=== PATIENT | male | born 1970 | race Caucasian/White ===

== ENCOUNTER 2020-04-22 00:34 | Emergency (ER) | payer MEDICARE ==
[~2020-04-22] VITALS: Ht 185.4 cm; Wt 113.4 kg
[2020-04-22] MEDS ORDERED: cefTRIAXone 1 GM in NS 55 ML IVPB ONE (00:45)
--- NOTE | 2020-04-22 00:49 | Emergency Room Report ---
History of Present Illness General Chief Complaint: Edema Source: Patient, EMS Present Illness HPI This a 50-year-old male with a history of bipolar. 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 He has no shirt on and only a shirt. He is not wearing any shoes. He presents with chief complaint of lower extremity edema and redness. He said is been ongoing for 10 days. He said he went to urgent care and nothing was done. He said that there was methamphetamine in the street and he may have "stepped on it. He complained of pain of 8 out of 10. Worse with walking. Better with rest. He has blistering to his right foot. He had previous blistering to the left foot but now scarred up. Denies any trauma. No fever or chills but no nausea no vomiting. Allergies: Coded Allergies: No Known Allergies (Unverified , 04/22/20) COVID-19 Screening Contact w/high risk pt: No Experienced COVID-19 symptoms?: No COVID-19 Testing performed PAN GREASER: No Patient History Past Medical History: see triage record, old chart reviewed Past Surgical History: other Pertinent Family History: none Social History: Denies: smoking Immunizations: other Reviewed Nursing Documentation: PMH: Agreed; PSxH: Agreed Nursing Documentation-PMH Hx Hypertension: Yes History Of Psychiatric Problem: Yes Review of Systems Eye: Denies: eye pain, blurred vision ENT: Denies: ear pain, nose congestion, throat swelling Respiratory: Denies: cough, shortness of breath Cardiovascular: Denies: chest pain, palpitations Gastrointestinal: Denies: abdominal pain, diarrhea, nausea, vomiting Musculoskeletal: Reports: joint swelling, muscle pain; Denies: back pain, joint pain Skin: Denies: rash Neurological: Denies: headache, numbness Endocrine: Denies: increased thirst, increased urine Hematologic/Lymphatic: Denies: easy bruising All Other Systems: negative except mentioned in HPI Physical Exam Vital Signs Date Time Temp Pulse Resp B/P (MAP) Pulse Ox O2 Delivery O2 Flow Rate FiO2 04/22/20 00:32 98.2 85 17 130/81 (97) 97 Room Air Vitals unremarkable Sp02 EP Interpretation: reviewed, normal General Appearance: well appearing, no apparent distress, alert Head: normocephalic, atraumatic Eyes: bilateral eye PERRL, bilateral eye EOMI ENT: hearing grossly normal, normal pharynx Neck: full range of motion, supple, no meningismus Respiratory: chest non-tender, lungs clear, normal breath sounds Cardiovascular #1: regular rate, rhythm, no murmur Gastrointestinal: normal bowel sounds, non tender, no mass, no organomegaly, no bruit, non-distended Musculoskeletal: back normal, normal range of motion, other - Right foot: There is a large blistered on the medial aspect of the ankle and calcaneus. He has eschared/scabbed blister to the left heel. There is lower extremity is very erythematous up to his thigh where his shorts end Neurologic: alert Psychiatric: mood/affect normal Skin: other - His torso was also erythematous. Medical Decision Making Diagnostic Impression: Primary Impression: Cellulitis of both lower extremities Additional Impression: Sunburn of second degree ER Course Patient presents with redness to his lower extremity and edema. I suspect that he is badly sunburn because area that is covered has normal skin color. He has been walking on the street barefoot and therefore developing blister. It may be infected. He does have edema but bilaterally. He is increased risk for cellulitis and abscess. I did send a culture. Antibiotics given here. Last Vital Signs Date Time Temp Pulse Resp B/P (MAP) Pulse Ox O2 Delivery O2 Flow Rate FiO2 04/22/20 00:32 98.2 85 17 130/81 (97) 97 Room Air Status: improved Disposition: HOME, SELF-CARE Condition: Stable Scripts Clindamycin Hcl (CLINDAMYCIN HCL) 300 Mg Capsule 300 MG ORAL THREE TIMES A DAY, #21 CAP Prov: Narinder Sanon MD 04/22/20 Additional Instructions: Elevate foot. Follow-up with your doctor in 7 days for recheck. Return if worse. Narinder Sanon MD Apr 22, 2020 00:49
[2020-04-22 01:11] VITALS: BP 136/78
[2020-04-22 01:11] LABS: BASOPHILS % (AUTO) 2.1 % (0.0-2.0); EOSINOPHILS % (AUTO) 1.6 % (0.0-3.0); HEMATOCRIT 40.1 % (42.0-52.0); HEMOGLOBIN 13.6 G/DL (14.2-18.0); MEAN CORPUSCULAR VOLUME 92 FL (80-99); MONOCYTES % (AUTO) 9.8 % (1.0-10.0); NEUTROPHILS % (AUTO) 64.4 % (45.0-75.0); PLATELET COUNT 326 K/UL (150-450); RED BLOOD COUNT 4.35 M/UL (4.70-6.10); RED CELL DISTRIBUTION WIDTH 12.3 % (11.6-14.8); WHITE BLOOD COUNT 11.5 K/UL (4.8-10.8)
[2020-04-22 01:14] LABS: ANION GAP 11 mmol/L (5-15); BLOOD UREA NITROGEN 24 mg/dL (7-18); CARBON DIOXIDE 27 MMOL/L (21-32); CHLORIDE 101 MMOL/L (98-107); CREATININE 1.1 MG/DL (0.55-1.30); POTASSIUM 3.5 MMOL/L (3.5-5.1); SODIUM 139 MMOL/L (136-145)
[2020-04-22 01:35] LABS: APPEARANCE,URINE CLEAR; BILIRUBIN, URINE NEGATIVE (NEGATIVE); GLUCOSE, URINE (UA) NEGATIVE (NEGATIVE); KETONES,URINE 3+ (NEGATIVE); LEUKOCYTE ESTERASE ,URINE 1+ (NEGATIVE); NITRITE,URINE NEGATIVE (NEGATIVE); PH,URINE 5 (4.5-8.0); PROTEIN,URINE 1+ (NEGATIVE); UROBILINOGEN,URINE 1 MG/DL (0.0-1.0)
[2020-04-22 01:39] LABS: COLOR,URINE YELLOW
[2020-04-22] MEDS ORDERED: CLINDAMYCIN HC300 MG ORAL (02:20)
[2020-04-22 05:00] VITALS: BP_SYST 133; BP_SYST 136; BP_DIAS 78; BP_DIAS 82
[2020-04-23] MEDS ORDERED: IBUPROFEN600 M1 ORAL (00:11)
[2020-04-23] MEDS ORDERED: QUETIAPINE FUM200 MG ORAL (08:31)
[2020-04-23] MEDS ORDERED: BP PO (08:32)
== END 2020-04-22 05:00 | disposition home or self-care (01) ==
LOC: EDBD 00:34 → EMR 00:50
DX: L03.116 Cellulitis of left lower limb (principal); L03.115 Cellulitis of right lower limb; L55.1 Sunburn of second degree; I10 Essential (primary) hypertension; S90.821A Blister (nonthermal), right foot, initial encounter; X58.XXXA Exposure to other specified factors, initial encounter; Y92.9 Unspecified place or not applicable
CPT/HCPCS: 36415; 80048; 80307; 81001; 85025; 87070; 87181; 87205; 96365; 99284; J0696

== ENCOUNTER 2020-04-22 23:41 | Emergency (ER) | payer MEDICARE ==
[~2020-04-22] VITALS: Ht 188 cm; Wt 108.9 kg
[~2020-04-22 23:41] MED LIST: CLINDAMYCIN HC300 MG ORAL
[2020-04-23 00:08] VITALS: BP 149/81
--- NOTE | 2020-04-23 00:10 | Emergency Room Report ---
History of Present Illness General Chief Complaint: Pain Source: Patient Present Illness HPI This a 50-year-old male with psychiatric history. He presents with chief complaint of bilateral lower extremity pain. I actually saw him last night and he was discharged at 6 AM this morning. He had blistering to his feet and cellulitis. I placed him on clindamycin. He claimed that he was here few days ago. He said that he did not get any Vicodin. On the [facility] system, he received 10 Vicodin last week. He said he only got 5 Vicodin's from another hospital. He said that he is taking Keflex even though I prescribed clindamycin. He did not remember being here last night. Pain is 9 out of 10. Worse with walking. Better with rest. He denies any other complaint. No fever chills but no nausea no vomiting. Allergies: Coded Allergies: No Known Allergies (Unverified , 04/23/20) COVID-19 Screening Contact w/high risk pt: No Experienced COVID-19 symptoms?: No COVID-19 Testing performed STAY CUTTER: No Patient History Past Medical History: see triage record, old chart reviewed, psych hx Past Surgical History: none Pertinent Family History: none Social History: Denies: smoking Immunizations: other Reviewed Nursing Documentation: PMH: Agreed; PSxH: Agreed Nursing Documentation-PMH Past Medical History: No History, Except For Hx Hypertension: Yes Review of Systems Eye: Denies: eye pain, blurred vision ENT: Denies: ear pain, nose congestion, throat swelling Respiratory: Denies: cough, shortness of breath Cardiovascular: Denies: chest pain, palpitations Gastrointestinal: Denies: abdominal pain, diarrhea, nausea, vomiting Musculoskeletal: Reports: muscle pain; Denies: back pain, joint pain Skin: Denies: rash Neurological: Denies: headache, numbness Endocrine: Denies: increased thirst, increased urine Hematologic/Lymphatic: Denies: easy bruising All Other Systems: negative except mentioned in HPI Physical Exam Vital Signs Date Time Temp Pulse Resp B/P (MAP) Pulse Ox O2 Delivery O2 Flow Rate FiO2 04/22/20 23:52 99.1 107 20 149/81 (103) 96 Room Air Vitals unremarkable Sp02 EP Interpretation: reviewed, normal General Appearance: well appearing, no apparent distress, alert Head: normocephalic, atraumatic Eyes: bilateral eye PERRL, bilateral eye EOMI ENT: hearing grossly normal, normal pharynx Neck: full range of motion, supple, no meningismus Respiratory: chest non-tender, lungs clear, normal breath sounds Cardiovascular #1: regular rate, rhythm, no murmur Gastrointestinal: normal bowel sounds, non tender, no mass, no organomegaly, no bruit, non-distended Musculoskeletal: back normal, normal range of motion, gait/station normal, other - Bilateral lower extremities with edema and redness up to his thigh from sunburn and possible cellulitis. Unchanged from before. Psychiatric: mood/affect normal Medical Decision Making Diagnostic Impression: Primary Impression: Pedal edema Additional Impression: Cellulitis and abscess of lower extremity ER Course Patient with lower extremity cellulitis and edema. Unchanged from yesterday. No evidence of any necrotizing fasciitis. Will discharge home. Last Vital Signs Date Time Temp Pulse Resp B/P (MAP) Pulse Ox O2 Delivery O2 Flow Rate FiO2 04/22/20 23:52 99.1 107 20 149/81 (103) 96 Room Air Status: improved Disposition: HOME, SELF-CARE Condition: Stable Scripts Ibuprofen* (MOTRIN*) 600 Mg Tablet 600 MG ORAL Q6H PRN for For Pain, #30 TAB 0 Refills Prov: Narinder Sanon MD 04/23/20 Additional Instructions: Keep wound clean. Follow-up with your doctor in 7 days. Return if worse. Narinder Sanon MD Apr 23, 2020 00:10
[2020-04-23] MEDS ORDERED: IBUPROFEN600 M1 ORAL (00:11)
[2020-04-23] MEDS ORDERED: Furosemide 40mg tab ORAL ONE (00:15)
[2020-04-23] MEDS ORDERED: Clindamycin 150mg cap ORAL ONE (00:15)
[2020-04-23 00:50] VITALS: BP 149/81
[2020-04-23] MEDS ORDERED: QUETIAPINE FUM200 MG ORAL (08:31)
[2020-04-23] MEDS ORDERED: BP PO (08:32)
== END 2020-04-23 00:50 | disposition home or self-care (01) ==
LOC: EMR 04-23 00:10
DX: R60.0 Localized edema (principal); L03.116 Cellulitis of left lower limb; L03.115 Cellulitis of right lower limb; I10 Essential (primary) hypertension
CPT/HCPCS: 99282

== ENCOUNTER 2020-04-23 06:48 | Inpatient (IN) | payer MEDICARE ==
[~2020-04-23 06:48] MED LIST changes: +IBUPROFEN600 M1 ORAL
[2020-04-23] MEDS ORDERED: Piperacillin/Tazobactam 3.375 GM in NS 110 ML IVPB ONE (07:30)
[2020-04-23] MEDS ORDERED: Vancomycin 1 GM in NS 275 ML IVPB ONE (07:30)
[2020-04-23] MEDS ORDERED: Bacitracin Oint UD TOPIC ONE (07:30)
[2020-04-23] MEDS ORDERED: Vancomycin 1.5gm/NS Premix 275 ML IVPB ONE (07:30)
[2020-04-23] MEDS ORDERED: QUETIAPINE FUM200 MG ORAL (08:31)
[2020-04-23] MEDS ORDERED: BP PO (08:32)
[2020-04-23] MEDS ORDERED: DiphenhydrAMINE 50mg/ml Inj IVP ONE (09:45)
[2020-04-23] MEDS: NS w/KCl 20mEq 1000ml 1,000 ML IV SCH ×2 (11:41→21:39)
[2020-04-23] MEDS: Vancomycin 1gm in Dextrose 275ml IVPB SCH ×2 (14:09→22:26)
[2020-04-23] MEDS ORDERED: QUEtiapine 200mg tab ORAL SCH (21:00)
[2020-04-23] MEDS: Cefepime HCl 1 GM in D5W 55 ML IVPB SCH (21:38)
[2020-04-23] MEDS: Heparin 5000 units/ml inj SUBQ SCH (21:40)
[2020-04-24] MEDS: Vancomycin 1gm in Dextrose 275ml IVPB SCH (06:12)
[2020-04-24] MEDS: NS w/KCl 20mEq 1000ml 1,000 ML IV SCH (06:12)
[2020-04-24] MEDS: Cefepime HCl 1 GM in D5W 55 ML IVPB SCH (08:31)
[2020-04-24] MEDS: Heparin 5000 units/ml inj SUBQ SCH (08:38)
== END 2020-04-24 13:22 | disposition left against medical advice (07) | DRG 603 ==
DX: L03.115 Cellulitis of right lower limb (principal); M62.82 Rhabdomyolysis; E44.0 Moderate protein-calorie malnutrition; B95.61 Methicillin susceptible Staphylococcus aureus infection as the cause of diseases classified elsewhere; B86 Scabies; I10 Essential (primary) hypertension; F17.200 Nicotine dependence, unspecified, uncomplicated; F31.9 Bipolar disorder, unspecified; I87.2 Venous insufficiency (chronic) (peripheral); E87.6 Hypokalemia